=== PATIENT | female | born 1950 | race Caucasian/White ===

== ENCOUNTER 2021-06-16 21:45 | Emergency (ER) | payer OTHER ==
[~2021-06-16] VITALS: Ht 149.9 cm; Wt 81.6 kg
[2021-06-16 21:50] VITALS: BP_SYST 142
--- NOTE | 2021-06-16 21:50 | NUR ---
Patient to ER hallway bed to gown for evaluation. Side rails up.
--- NOTE | 2021-06-16 21:52 | NUR ---
Patient BIBA by [id number] complaining of headache s/p mechanical fall off 3 concrete steps falling forward and hitting left side of head. Patient has hematoma present. Pain 6/10. Patient is AOx4, denies any blurred vision, nausea vomiting. Denies LOC. No other complaints/injuries per patient or as noted.
--- NOTE | 2021-06-16 22:06 | NUR ---
Collected urine, dark orange, non-sedentary, sent to the lab.
--- NOTE | 2021-06-16 22:42 | NUR ---
ER at bedside examining patient.
--- NOTE | 2021-06-16 23:01 | NUR ---
patient off unit to ct scan.
--- NOTE | 2021-06-16 23:04 | NUR ---
patient returned from ct scan
[2021-06-16] MEDS: ACETAMINOPHEN 325 MG TABLET PO ONE (23:27)
[2021-06-16] MEDS: INSULIN REGULAR, HUMAN 10 UNITS/0.1 ML INJ SUBCUT ONE (23:28)
[2021-06-17 00:11] VITALS: BP_SYST 132
--- NOTE | 2021-06-17 00:11 | NUR ---
Patient given written and verbal discharge instructions and verbalizes understanding. ER MD discussed with patient the results and treatment provided. Patient in stable condition. ID arm band removed. Patient educated on pain management and to follow up with PMD. Pain Scale0/10 Opportunity for questions provided and answered.
== END 2021-06-17 00:11 | disposition home or self-care (01) ==
LOC: SED 21:45
DX: S16.1XXA Strain of muscle, fascia and tendon at neck level, initial encounter (principal); S00.03XA Contusion of scalp, initial encounter; S09.90XA Unspecified injury of head, initial encounter; R51.9 Headache, unspecified; I10 Essential (primary) hypertension; E11.9 Type 2 diabetes mellitus without complications; W01.198A Fall on same level from slipping, tripping and stumbling with subsequent striking against other object, initial encounter; Y93.89 Activity, other specified; Y92.89 Other specified places as the place of occurrence of the external cause; Y99.8 Other external cause status
CPT/HCPCS: 70450; 76376; 96372; 99284; J1815